=== PATIENT | female | born 1990 | race Asian ===

== ENCOUNTER 2021-06-18 16:06 | Outpatient (CLI) | payer OTHER ==
[2021-06-18 16:48] LABS: BASOPHILS % (AUTO) 0.2 %; EOSINOPHILS # (AUTO) 0.1 10^3/uL (0.0-0.7); EOSINOPHILS % (AUTO) 1.2 %; HCT - HEMATOCRIT 38.9 % (37.0-47.0); HGB - HEMOGLOBIN 12.7 g/dL (12.0-16.0); LYMPHOCYTES # (AUTO) 2.3 10^3/uL (1.5-3.5); LYMPHOCYTES % (AUTO) 21.8 %; MEAN CORPUSCULAR HEMOGLOBIN 28.3 pg (27.0-31.0); MEAN CORPUSCULAR HGB CONC 32.6 g/dL (32.0-36.0); MEAN CORPUSCULAR VOLUME 86.6 fL (81.0-99.0); MEAN PLATELET VOLUME 9.5 fL (7.9-10.8); MONOCYTES # (AUTO) 0.7 10^3/uL (0.0-1.0); MONOCYTES % (AUTO) 6.5 %; NEUTROPHILS # (AUTO) 7.3 10^3/uL (1.5-6.6); PLT - PLATELET COUNT 267 10^3/uL (130-450); RED BLOOD COUNT 4.49 10^6/uL (4.20-5.40); RED CELL DISTRIBUTION WIDTH 13.1 % (12.0-15.0); WHITE BLOOD COUNT 10.4 x10^3/uL (4.8-10.8)
[2021-06-18 17:36] LABS: BILIRUBIN,URINE NEGATIVE (NEGATIVE); GLUCOSE, URINE (UA) NEGATIVE (NEGATIVE); KETONES,URINE (UA) NEGATIVE (NEGATIVE); LEUKOCYTE ESTERASE, URINE NEGATIVE (NEGATIVE); NITRITE,URINE NEGATIVE (NEGATIVE); OCCULT BLOOD,URINE TRACE-INTA (NEGATIVE); PROTEIN,URINE NEGATIVE (NEGATIVE); UROBILINOGEN,URINE 0.2 (NORMAL) E.U./dL (NORMAL)
[2021-06-18 17:40] LABS: CLARITY,URINE HAZY (CLEAR)
[2021-06-18 17:57] LABS: BACTERIA,URINE Moderate /HPF (None Seen); RBC,URINE 0-5 /HPF (0-5); SQUAMOUS EPITHELIAL CELL,UR MOD Squamous (<= Few); WBC,URINE 0-3 /HPF (0-5)
[2021-06-18 20:29] LABS: ESTIMATED AVERAGE GLUCOSE 94 mg/dL (70-100); HEMOGLOBIN A1c% 4.9 % (4.27-6.07)
--- NOTE | 2021-06-19 08:52 | Ultrasound Report ---
PROCEDURE: OB First Trimester w/TV INDICATIONS: POSITIVE TEST OUTSIDE/PRIOR DATING DATA: Last menstrual period (LMP): April 08, 2021. LMP-based estimated date of delivery (BRITNEY): January 13, 2022. First dating scan (date ): June 18, 2021. Estimated date of delivery (BRITNEY) from first dating scan: January 31, 2022. The below data below was generated using the ultrasound BRITNEY of January 31, 2022 TECHNIQUE: Real-time scanning was performed of the fetus and maternal pelvic organs, with image documentation. Endovaginal scanning was also performed to better visualize the fetus and maternal ovaries. FINDINGS: 2 hypoechoic areas are seen adjacent to the gestational sac, measuring up to 1.6 cm, most consistent with subchorionic hemorrhages. Embryo: 1.3 cm, compatible with a 7 week, 4 day gestation Heart rate: 160 beats per minute Cervix: Closed. Measurement variability in dating: +/- 4 weeks by LMP, +/- 7 days by mean sac diameter (use before 6 weeks gestation if crown-rump length not able to be measured), +/- 5 days by crown-rump length (6-12 weeks gestation). Maternal organs: A thick-walled lesion is seen within the right ovary, most consistent with a corpus luteum cyst. IMPRESSION: 1. Single live intrauterine gestation. 2. Subchorionic hemorrhages as detailed above. Consider short-term sonographic follow-up as clinicall y warranted. Reviewed by: Balbir Alas MD on 06/19/2021 8:50 AM [facility] Approved by: Balbir Alas MD on 06/19/2021 8:50 AM [facility] Station ID: [id number]
[2021-06-20 13:26] LABS: HEPATITIS B SURFACE ANTIGEN NON-REACTIVE (NON-REACTIVE)
[2021-06-20 13:31] LABS: HEPATITIS C ANTIBODY NON-REACTIVE (NON-REACTIVE)
[2021-06-20 14:55] LABS: HIV AG/AB 4TH GEN NON-REACTIVE (NON-REACTIVE)
== END 2021-06-18 16:07 | disposition home or self-care (01) ==
LOC: EDBD 16:06 → DI 16:06
PROVIDERS: ATTEND Obstetrics & Gynecology
DX: Z32.01 Encounter for pregnancy test, result positive (principal); Z36.89 Encounter for other specified antenatal screening
CPT/HCPCS: 36415; 81001; 83036; 85025; 86592; 86762; 86787; 86803; 86850; 86900; 86901; 87086; 87340; 87389

== ENCOUNTER 2021-06-22 08:00 | Outpatient (CLI) | payer OTHER ==
[2021-06-23 22:44] LABS: CHLAMYDIA TRACHOMATIS DNA NEGATIVE (NEGATIVE); NEISSERIA GONORRHOEAE DNA NEGATIVE (NEGATIVE); TRICHOMONAS VAGINALIS DNA NEGATIVE (NEGATIVE)
== END 2021-06-22 23:59 ==
LOC: LAB.WC 08:00
PROVIDERS: ATTEND Obstetrics & Gynecology
DX: Z11.3 Encounter for screening for infections with a predominantly sexual mode of transmission (principal)
CPT/HCPCS: 87491; 87591; 87661

== ENCOUNTER 2021-07-26 11:24 | Emergency (ER) | payer OTHER ==
[2021-07-26 11:46] VITALS: BP 117/76
--- NOTE | 2021-07-26 12:25 | ED Physician Documentation ---
History of Present Illness - Stated complaint Stated Complaint: SHORTNESS BREATH, FAINTING, LIGHT HEADED - Chief complaint Chief Complaint: Heent - Additonal information Additional information: 30-year-old female G1, P0 presents emergency department for evaluation of about 1 week cough, congestion body ache headache and chills. She is incidentally 13 weeks . Being followed by OB here at [facility]. She has had an ultrasound confirming IUP. She has not had any recent fevers. She is very anxious and nervous about the possibility of being COVID-positive in the setting of her . She denies any nausea or vomiting. No lower pelvic pain vaginal bleeding or loss of fluids. Review of Systems Constitutional: reports: Chills, Myalgias, Fatigue. denies: Fever Eyes: reports: Reviewed and negative Ears: reports: Reviewed and negative Nose: reports: Reviewed and negative Throat: reports: Reviewed and negative Cardiac: denies: Chest pain / pressure, Palpitations, Pedal edema Respiratory: reports: Dyspnea. denies: Cough, Hemoptysis GI: reports: Reviewed and negative : reports: Reviewed and negative Skin: reports: Reviewed and negative Musculoskeletal: reports: Reviewed and negative PD PAST MEDICAL HISTORY - Allergies Allergies/Adverse Reactions: Allergies Allergy/AdvReac Type Severity Reaction Status Date / Time No Known Drug Allergies Allergy Verified 07/26/21 11:46 PD ED PE NORMAL - General General: Alert and oriented X 3, No acute distress - HEENT HEENT: PERRL - Cardiac Cardiac: RRR, No murmur, No gallop - Respiratory Respiratory: No respiratory distress, Clear bilaterally - Abdomen Abdomen: Normal bowel sounds, Soft, Non tender - Back Back: No CVA TTP - Derm Derm: Normal color, Warm and dry, No rash - Extremities Extremities: No deformity - Neuro Neuro: Alert and oriented X 3, slag mixer 2-12 intact Eye Opening: Spontaneous Motor: Obeys Commands Verbal: Oriented GCS Score: 15 - Psych Psych: Normal mood Results - Vitals Vitals: Vital Signs - 24 hr 07/26/21 11:42 Temperature 37.0 C Heart Rate 92 Respiratory 16 Rate Blood Pressure 117/76 O2 Saturation 98 Oxygen O2 Source Room air PD MEDICAL DECISION MAKING - ED course Complexity details: reviewed results, re-evaluated patient, considered differential, d/w patient ED course: This is a well-appearing 30-year-old female who presents emergency department for cough congestion myalgias headache that began about 1 week ago. She had close exposure to her coworker who is COVID-positive. Patient is exceedingly anxious about the possibility being COVID-positive in the setting of . She has no lower abdominal pain vaginal bleeding or loss of fluids has previously had an ultrasound confirming IUP. Unremarkable cardiopulmonary auscultation here in the emergency department with normal vitals. COVID screen is pending. Emergent return precautions were discussed. She is to continue follow-up with OB as already scheduled. Departure - Departure Disposition: 01 Home, Self Care Clinical Impression: Encounter for screening for COVID-19, and not yet delivered in second trimester Upper respiratory infection Qualifiers: URI type: unspecified viral URI Qualified Code(s): J06.9 - Acute upper respiratory infection, unspecified Condition: Stable Record reviewed to determine appropriate education?: Yes Comments: You are seen today in the emergency department for cough congestion headache body aches and shortness of air. You were exposed to a coworker who subsequently was positive for COVID-19. We do have a COVID test pending on you. You do need to maintain quarantine until the test results are known. Your heart and lung sounds are normal in the emergency department. Your vital signs are also normal. Your oxygen levels are normal. In general there is no specific treatment. We recommend that you stay well-h ydrated. Because you are you can take Tylenol for body aches. Continue to follow the recommendations by OB whether or not cough medication such as Robitussin or Tessalon/Sudafed are appropriate for you. At any point you develop difficulty breathing, have lower pelvic pain, vaginal bleeding or loss of fluids then you are to return immediately to the ER. Continue follow-up with OB as already scheduledYou have a Covid test pending. You need to self quarantine until the result is done and negative. Do not leave your house. Do not get near anybody. The results should be done in 48 to 72 hours. We will call with a positive result, the fastest way to get a negative result for confirmation though is to go to the hospital website at [email or web address], click on the my ZIPDIGS tab and sign up for the patient portal. If any friends or family get sick and would like to have a Covid test done, but do not have signs or symptoms that would necessitate being hospitalized, there are multiple local options for Covid testing. [facility] keeps an updated list of testing and vaccination options at [email or web address]
== END 2021-07-26 12:41 | disposition home or self-care (01) ==
LOC: ED 11:24
DX: O99.511 Diseases of the respiratory system complicating pregnancy, first trimester (principal); J06.9 Acute upper respiratory infection, unspecified; Z20.822 Contact with and (suspected) exposure to COVID-19
CPT/HCPCS: 99282; 99283

== ENCOUNTER 2021-08-12 13:17 | Outpatient (CLI) | payer OTHER | END 2021-08-12 13:18 | disposition home or self-care (01) | LOC: LAB.N 13:17 | PROVIDERS: ATTEND Obstetrics & Gynecology | DX: Z34.00 Encounter for supervision of normal first pregnancy, unspecified trimester (principal) | CPT/HCPCS: 36415; 82950 ==

== ENCOUNTER 2021-08-17 08:00 | Outpatient (CLI) | payer OTHER ==
[2021-08-17 18:11] LABS: BACTERIAL VAGINOSIS DNA NEGATIVE (NEGATIVE); CANDIDA GLABRATA DNA NEGATIVE (NEGATIVE); CANDIDA GROUP DNA NEGATIVE (NEGATIVE); CANDIDA KRUSEI DNA NEGATIVE (NEGATIVE); TRICHOMONAS VAGINALIS DNA NEGATIVE (NEGATIVE)
== END 2021-08-17 23:59 | disposition home or self-care (01) ==
LOC: LAB.WC 08:00
PROVIDERS: ATTEND Obstetrics & Gynecology
DX: N76.0 Acute vaginitis (principal)
CPT/HCPCS: 87661; 87801

== ENCOUNTER 2021-08-30 13:31 | Outpatient (CLI) | payer OTHER ==
--- NOTE | 2021-08-30 17:38 | Ultrasound Report ---
PROCEDURE: OB Detailed Eval INDICATIONS: SUPERVISION NORMAL FIRST OUTSIDE/PRIOR DATING DATA: Last menstrual period (LMP): 04/08/2021. LMP-based estimated date of delivery (BRITNEY): 01/13/2022. First dating scan (date and location): 06/18/2021. Estimated date of delivery (BRITNEY) from first dating scan: 01/31/2022. The below data below was generated using the ultrasound derived BRITNEY of 01/31/2022 TECHNIQUE: Real-time scanning was performed of the fetus, with image documentation and biometric measurements. COMPARISON: 06/18/2021. FINDINGS: General: A single living intrauterine gestation is present. Presentation: Variable Placenta: Placental position is anterior. There is a low-lying placenta with the inferior margin marquita roximately 1.5 cm from the internal cervical os. Amniotic fluid index: 14.3 cm, within normal limits for gestational age. Largest pocket measures 4. 6 m. heart rate: 145 beats per minute. Maternal cervical canal: 3.6 cm long; normal length is 2.5 cm or more. biometrics: Biparietal diameter: 4.5 cm, 19 weeks 5 days Head circumference: 16.2 cm, 19 weeks 0 days Abdominal circumference: 14.2 cm, 19 weeks 4 days Femur length: 2.6 cm, 18 weeks 0 days Estimated gestational age from initial scan: 18 weeks 0 days Composite gestational age from present scan: 19 weeks 2 days Estimated weight and percentile: 263 g corresponding to the 92nd percentile Measurement variability in biometric dating: +/- 10 days from 12-20 weeks gestation, +/- 2 weeks from 20-30 weeks gestation, +/- 3 weeks at 30 weeks gestation or later. Anatomic survey: Neuro: Ventricles are normal at less than 10 mm. Cisterna magna is normal at 3-11 mm. Cerebellum i s normal in size and morphology. Nuchal skin fold: Normal at less than 6 mm between 14 and 20 weeks gestational age. Face: Nose and lips, facial profile are not well-seen due to position. Spine: No evidence for spina bifida. Heart: 4-chambered heart is present, with normal ventricular outflow tracts. Diaphragm: Diaphragm is intact. Stomach: Left-sided stomach is present. Kidneys: No hydronephrosis. Normal is less than 5 mm in 2nd trimester, less than 7 mm in 3rd trimester. Cord: 3 vessel cord has orthotopic insertion. Bladder: Normal in size. Extremities: All 4 extremities are visualized. IMPRESSION: 1. Single living demonstrating interval growth at the upper limits of normal with estimated weight at the 92nd percentile. Recommend attention on follow-up. 2. Low-lying placenta. Recommend attention on follow-up. 3. facial structures not well seen due to position. Recommend a follow-up study in 2-4 we eks for further evaluation if clinically indicated. anatomic survey otherwise appears within no rmal limits. Reviewed by: Luis Miguel Mcgovern MD on 08/30/2021 5:36 PM PST Approved by: Luis Miguel Mcgovern MD on 08/30/2021 5:36 PM PST Station ID: [id number]
[2021-08-31 13:11] LABS: AFP MOM 1.15; AGE RISK DOWN SYNDROME 1 IN 530; CIGARETTE SMOKER? NOT GIVEN; DONOR AGE: EGG RETRIEVAL NOT GIVEN; DONOR EGG NO; EDD DETERMINED BY ULTRASOUND; ESTRIOL MOM 1.86; HX OF NEURAL TUBE DEFECTS NO; INHIBIN A MOM 1.26; INSULIN DEPEND DIABETIC NO; MATERNAL WEIGHT 116 lbs; MSS DOWN SYNDROME RISK <1 IN 5000; MSS3 TRISOMY 18 RISK <1 IN 5000; NUMBER OF FETUSES 1; PREV PREGNANCY DOWN SYND NO; RISK FOR ONTD <1 IN 5000
== END 2021-08-30 13:32 | disposition home or self-care (01) ==
LOC: DI 13:31
PROVIDERS: ATTEND Obstetrics & Gynecology
DX: O44.42 Low lying placenta NOS or without hemorrhage, second trimester (principal); Z3A.19 19 weeks gestation of pregnancy
CPT/HCPCS: 36415; 81220; 81511

== ENCOUNTER 2021-10-06 14:32 | Outpatient (CLI) | payer OTHER ==
--- NOTE | 2021-10-06 16:16 | Ultrasound Report ---
PROCEDURE: OB F/U or Repeat INDICATIONS: SUPERVISION OF OUTSIDE/PRIOR DATING DATA: Last menstrual period (LMP): April 08, 2021. LMP-based estimated date of delivery (BRITNEY): January 13, 2022. First dating scan (date ): June 18, 2021. Estimated date of delivery (BRITNEY) from first dating scan: January 31, 2022. TECHNIQUE: Real-time scanning was performed of the fetus, with image documentation and biometric measurements. COMPARISON: Prior studies dating back to June 18, 2021 FINDINGS: General: A single living intrauterine gestation is present. Presentation: Transverse Placenta: Placental position is anterior, without previa. Amniotic fluid index: 14.3 cm, appropriate for gestational age. heart rate: 157 beats per minute. Maternal cervical canal: 3.98 cm long; normal length is 2.5 cm or more. Estimated gestational age from initial scan: 23 weeks, 2 days. Other: Not applicable. IMPRESSION: Live single intrauterine gestation as detailed above. Reviewed by: Balbir Alas MD on 10/06/2021 4:15 PM PDT Approved by: Balbir Alas MD on 10/06/2021 4:15 PM PDT Station ID: [id number]
== END 2021-10-06 14:33 | disposition home or self-care (01) ==
LOC: DI 14:32
PROVIDERS: ATTEND Obstetrics & Gynecology
DX: Z34.02 Encounter for supervision of normal first pregnancy, second trimester (principal)

== ENCOUNTER 2021-11-03 13:20 | Outpatient (CLI) | payer OTHER ==
--- NOTE | 2021-11-03 16:15 | Ultrasound Report ---
PROCEDURE: OB F/U or Repeat INDICATIONS: HYDRONEPHROSIS OUTSIDE/PRIOR DATING DATA: Last menstrual period (LMP): April 08, 2021. LMP-based estimated date of delivery (BRITNEY): January 13, 2022. First dating scan (date ): June 18, 2021. Estimated date of delivery (BRITNEY) from first dating scan: January 31, 2022. TECHNIQUE: Real-time scanning was performed of the fetus, with image documentation and biometric measurements. COMPARISON: Prior studies dating back to August 30, 2021. FINDINGS: General: A single living intrauterine gestation is present. Presentation: Vertex Placenta: Placental position is anterior, without previa. Amniotic fluid index: 14.2 cm, appropriate for gestational age. heart rate: 141 beats per minute. Maternal cervical canal: Not well seen. anatomy: Kidneys: Right renal pelvis measures 5.8 mm. Left renal pelvis measures 5.9 mm. Normal is less than 5 mm in 2nd trimester, less than 7 mm in 3rd trimester. Stomach/abdomen: Normal appearance Chest/diaphragm: Normal appearance. Estimated gestational age from initial scan: 27 weeks, 2 days. Other: Not applicable. IMPRESSION: Left single intrauterine gestation as detailed above. Reviewed by: Balbir Alas MD on 11/03/2021 4:14 PM PDT Approved by: Balbir Alas MD on 11/03/2021 4:14 PM PDT Station ID: [id number]
== END 2021-11-03 13:21 | disposition home or self-care (01) ==
LOC: DI 13:20
PROVIDERS: ATTEND Obstetrics & Gynecology
DX: O35.8XX0 Maternal care for other (suspected) fetal abnormality and damage, not applicable or unspecified (principal)

== ENCOUNTER 2021-11-03 14:01 | Outpatient (CLI) | payer OTHER ==
[2021-11-03 15:11] LABS: HCT - HEMATOCRIT 34.6 % (37.0-47.0); HGB - HEMOGLOBIN 11.3 g/dL (12.0-16.0); MEAN CORPUSCULAR HEMOGLOBIN 28.9 pg (27.0-31.0); MEAN CORPUSCULAR HGB CONC 32.7 g/dL (32.0-36.0); MEAN CORPUSCULAR VOLUME 88.5 fL (81.0-99.0); MEAN PLATELET VOLUME 8.8 fL (7.9-10.8); RED BLOOD COUNT 3.91 10^6/uL (4.20-5.40); RED CELL DISTRIBUTION WIDTH 13.4 % (12.0-15.0); WHITE BLOOD COUNT 9.4 x10^3/uL (4.8-10.8)
== END 2021-11-03 14:02 | disposition home or self-care (01) ==
LOC: LAB 14:01
PROVIDERS: ATTEND Obstetrics & Gynecology
DX: Z34.00 Encounter for supervision of normal first pregnancy, unspecified trimester (principal)
CPT/HCPCS: 36415; 82950; 85027

== ENCOUNTER 2021-11-14 08:09 | Outpatient (CLI) | payer OTHER ==
[2021-11-14 08:35] LABS: GTT GLUCOSE,FASTING 80 mg/dL (70-100)
== END 2021-11-14 08:10 | disposition home or self-care (01) ==
LOC: LAB 08:09
PROVIDERS: ATTEND Obstetrics & Gynecology
DX: E74.39 Other disorders of intestinal carbohydrate absorption (principal)
CPT/HCPCS: 36415; 82951; 82952

== ENCOUNTER 2021-12-25 14:30 | Outpatient (CLI) | payer OTHER ==
[2021-12-25 14:52] LABS: CALCIUM 9.6 mg/dL (8.5-10.3); CREATININE 0.5 mg/dL (0.4-1.0); POTASSIUM 4.2 mmol/L (3.5-5.0)
== END 2021-12-25 14:31 | disposition home or self-care (01) ==
LOC: LAB 14:30
PROVIDERS: ATTEND Obstetrics & Gynecology
DX: E74.39 Other disorders of intestinal carbohydrate absorption (principal)
CPT/HCPCS: 36415; 80048

== ENCOUNTER 2021-12-28 11:48 | Outpatient (CLI) | payer OTHER ==
[2021-12-28 11:55] VITALS: BP 126/78
--- NOTE | 2021-12-28 13:17 | PROVIDER PROGRESS NOTE ---
- HPI Chief Complaint: Labor Current : Current EDU 01/31/22 Gestation 35 Weeks and 1 Days 1 Para 0 Vital Signs Temperature 98.1 F 12/28/21 11:54 Heart Rate 81 12/28/21 11:54 Respiratory Rate 17 12/28/21 11:54 Blood Pressure 126/78 12/28/21 11:54 O2 Saturation 99 12/28/21 11:54 Temperature 98.1 F 12/28/21 11:55 Heart Rate 81 12/28/21 11:54 Respiratory Rate 17 12/28/21 11:54 Blood Pressure 126/78 12/28/21 11:54 O2 Saturation 99 12/28/21 11:54 - Procedures OB Procedure Performed: NST Diagnosis/Indication for NST: labor NST Procedure: NST Procedure Start Date 12/28/21 Start Time 11:50 Stop Time 12:20 Vibroacoustic Stimulation Used No Patient States Movement Yes Service Date of procedure: 12/28/21 (Read: 12/28/2021) - Plan Plan: Patient is a 31-year-old G1, P0 at 35 weeks 1 day gestation presenting to triage for abdominal tightening. She says she is been having tightening of her belly, but is unsure if this is a contraction. She says this happened on the way to the hospital, but since she has been here, she has had no issues. No pain with the tightening. She has no dysuria. She has good movement, no leaking, no vaginal bleeding. She denies headache, right upper quadrant pain, changes in vision. Past medical history Chronic dermatitis Overactive bladder Past surgical history Denies Family history Father: Hypertension, diabetes Maternal grandmother: Hypertension, diabetes Social history Denies tobacco, alcohol, drugs, partner in active duty . Physical exam Constitutional: alert, no acute distress, well hydrated, well developed, well nourished, appropriate dress. Cardiovascular: RRR. Respiratory: no respiratory distress. Abdomen: nondistended, nontender, no guarding. Psych: affect and mood appropriate, normal interaction, good eye contact. FHT: 135 beats per baseline, moderate bili, accelerations present, no decelerations. [place]: Quiescent SVE: 0/0/-3 Assessment and plan 31-year-old G1, P0 at 35 weeks 1 day gestation presenting for abdominal cramping. 1. False labor -Cervix is not dilated. No contractions picked up on monitor. These are not painful and she does not appear in labor, patient was discharged with labor precautions. Discussed low threshold for returning if contractions worsen.
== END 2021-12-28 13:00 | disposition home or self-care (01) ==
LOC: WFO 11:48 → FBP 11:51 → WFO 13:00
PROVIDERS: ATTEND Obstetrics & Gynecology
DX: O47.03 False labor before 37 completed weeks of gestation, third trimester (principal); Z3A.35 35 weeks gestation of pregnancy
CPT/HCPCS: 59025; 99214

== ENCOUNTER 2022-01-01 06:25 | Inpatient (IN) | payer OTHER ==
[2022-01-01 06:58] LABS: RUPTURE OF MEMBRANES PLUS POSITIVE (NEGATIVE)
[2022-01-01] MEDS ORDERED: LACTATED RINGERS 1,000 ML ONE (07:33)
[2022-01-01] MEDS ORDERED: LIDOCAINE-MPF 1% 30 ML VIAL ID PRN (08:09)
[2022-01-01] MEDS ORDERED: hydrALAZINE INJ 20 MG/ML VIAL IVP PRN ×2 (08:09)
[2022-01-01] MEDS ORDERED: miSOPROStoL 200 MCG TABLET BC PRN (08:09)
[2022-01-01] MEDS ORDERED: TRANEXAMIC ACID IN NACL 1,000 MG/100 ML BAG IV PRN (08:09)
[2022-01-01] MEDS ORDERED: miSOPROStoL 200 MCG TABLET PR PRN (08:09)
[2022-01-01] MEDS ORDERED: fentaNYL 100 MCG/2 ML VIAL IVP PRN (08:09)
[2022-01-01] MEDS ORDERED: SODIUM CHLORIDE FLUSH 0.9% 10 ML SYRINGE IVP PRN (08:09)
[2022-01-01] MEDS ORDERED: NIFEdipine 10 MG CAPSULE PO PRN (08:09)
[2022-01-01] MEDS ORDERED: LABETALOL 20 MG/4 ML SYRINGE IVP PRN ×3 (08:09)
[2022-01-01] MEDS ORDERED: OXYTOCIN 10 UNIT/ML VIAL IM PRN (08:09)
[2022-01-01] MEDS ORDERED: METHYLERGONOVINE 0.2 MG/ML VIAL IM PRN (08:09)
[2022-01-01] MEDS ORDERED: CARBOPROST TROMETHAMINE 250 MCG/ML AMP IM PRN (08:09)
[2022-01-01] MEDS ORDERED: OXYTOCIN/SODIUM CHLORIDE 500 ML IV PRN (08:09)
[2022-01-01] MEDS ORDERED: AMPICILLIN 2 GM in SODIUM CHLORIDE 0.9% MINIBAG 100 ML IV SCH (08:30)
[2022-01-01] MEDS ORDERED: BETAMETHASONE 30 MG/5 ML VIAL IM SCH (09:00)
[2022-01-01] MEDS ORDERED: OXYTOCIN/SODIUM CHLORIDE 500 ML IV SCH (09:00)
[2022-01-01] MEDS ORDERED: SODIUM CHLORIDE FLUSH 0.9% 10 ML SYRINGE IVP SCH (09:00)
[2022-01-01] MEDS: LACTATED RINGERS 1,000 ML IV SCH ×2 (09:39→17:00)
[2022-01-01 09:46] LABS: BASOPHILS % (AUTO) 0.2 %; EOSINOPHILS # (AUTO) 0.1 10^3/uL (0.0-0.7); EOSINOPHILS % (AUTO) 0.5 %; HCT - HEMATOCRIT 36.5 % (37.0-47.0); LYMPHOCYTES # (AUTO) 1.6 10^3/uL (1.5-3.5); LYMPHOCYTES % (AUTO) 16.1 %; MEAN CORPUSCULAR HEMOGLOBIN 28.7 pg (27.0-31.0); MEAN CORPUSCULAR HGB CONC 32.9 g/dL (32.0-36.0); MEAN CORPUSCULAR VOLUME 87.3 fL (81.0-99.0); MEAN PLATELET VOLUME 10.7 fL (7.9-10.8); MONOCYTES # (AUTO) 0.6 10^3/uL (0.0-1.0); MONOCYTES % (AUTO) 6.1 %; NEUTROPHILS # (AUTO) 7.3 10^3/uL (1.5-6.6); NEUTROPHILS % (AUTO) 76.1 %; PLT - PLATELET COUNT 217 10^3/uL (130-450); RED BLOOD COUNT 4.18 10^6/uL (4.20-5.40); RED CELL DISTRIBUTION WIDTH 13.2 % (12.0-15.0); WHITE BLOOD COUNT 9.7 x10^3/uL (4.8-10.8)
[2022-01-01 09:57] LABS: ALBUMIN 3.6 g/dL (3.2-5.5); ALBUMIN/GLOBULIN RATIO 0.9 (1.0-2.2); BILIRUBIN,TOTAL 0.4 mg/dL (0.2-1.0); CALCIUM 9.6 mg/dL (8.5-10.3); CREATININE 0.7 mg/dL (0.4-1.0); POTASSIUM 3.9 mmol/L (3.5-5.0); TOTAL PROTEIN 7.4 g/dL (6.7-8.2)
--- NOTE | 2022-01-01 10:05 | PROCEDURE REPORT ---
- HPI Diagnosis/Indication for NST: labor Vital Signs Temperature 98.6 F 01/01/22 06:31 Heart Rate 81 01/01/22 06:31 Respiratory Rate 20 01/01/22 06:31 Blood Pressure 138/90 H 01/01/22 06:31 Temperature 98.6 F 01/01/22 06:31 Heart Rate 81 01/01/22 06:31 Respiratory Rate 20 01/01/22 06:31 Blood Pressure 138/90 H 01/01/22 06:31 O2 Saturation - NST Procedure NST Procedure Start Time 11:50 Stop Time 12:20 EFM: 150s, moderate variability, positive accelerations, no decelerations [place]: 2-4min NST reactive - Results and Plan Plan: 31to at 35.5w with reactive NST, PPROM - Discussed with pediatrics, may admit patient for delivery - Admit
--- NOTE | 2022-01-01 10:06 | HISTORY & PHYSICAL EXAMINATION ---
Admit History - Visit Reason Visit Reason: Membranes rupture (01/01 0400) - : 1 Parity: 0 Care: positive: [facility] Risk/History: positive: labor <37 weeks, induced HTN, Labor augmentation, Premature rupture membrane Complications This : positive: Treated for GBS/UTI (Treat pending GBS results due to at 35w), induced HTN (PCR pending to evaluate for preeclampsia) Smoking Status: Never smoker - Mother's Labs Mother's Blood Type: positive: B Mother's RH: positive: Positive GBS: positive: Other (Unknown at 35w, GBS pending) Rubella Status: positive: Immune (11/03 US at 27.2w shows pelviectasis resolving. R renal pelvis 5.8mm, L renal pelvis 5.9mm) - Other Maternal History Other Maternal History: Med: chronic dermatitis, overactive bladder Surg: denies Social: Lives in [place] with and he is active duty, she works at [employer] at [place] Fam: noncontributory Meds/Allgy - Allergies Allergies/Adverse Reactions: Allergies Allergy/AdvReac Type Severity Reaction Status Date / Time No Known Drug Allergies Allergy Verified 07/26/21 11:46 Review of Systems - All Other Systems All Other Systems: reports: Reviewed and negative Physical - Abdominal Exam Vital Signs: Temp Pulse Resp BP Pulse Ox 98.6 F 81 20 138/90 H 01/01/22 06:31 01/01/22 06:31 01/01/22 06:31 01/01/22 06:31 Contraction Frequency (min/apart): 2-4m Contraction Intensity: positive: Mild to moderate Uterine Resting Tone: positive: Soft - Monitoring Heart Rate Baseline: 150s Strip Review: positive: Category I - Presentation Presentation: positive: Vertex - Vaginal Exam Membranes: positive: Membranes ruptured (ROMPLUS positive, gross clear fluid noted) Dilation (in cm): 2 Effacement (%): 80 Station: positive: -3 Cervical Position: positive: Midposition (Cephalic, EFW 3000g, Placenta anterior) - Speculum Exam Speculum Exam Performed: positive: No Findings: positive: Gross leak, Other (ROMPLUS POS) Plan for Labor - Plan For Labor Plan for Labor: 31yo at 35.5w by 7w US admitted for PPROM - Admit for PPROM. Discussed with Pediatrics and delivery approved here at . OB and Pediatrics reviewed risks of delivery and risk of transfer, patient and partner expressed understanding. - GBS pending. Start ampicillin now. - Gestational hypertension vs preeclampsia. PCR pending. Monitor BP, no antihypertensive at this time. - Celestone for lung maturity - Currently jocelin and uncomfortable. Plans for epidural. Will augment labor as needed.
[2022-01-01] MEDS: AMPICILLIN 2 GM in SODIUM CHLORIDE 0.9% MINIBAG 100 ML IV SCH ×2 (10:17→17:02)
[2022-01-01] MEDS ORDERED: miSOPROStoL 100 MCG TABLET BC ONE (11:00)
[2022-01-01 13:13] LABS: CREATININE,URINE 96.1 mg/dL
[2022-01-01] MEDS ORDERED: ONDANSETRON 4 MG/2 ML VIAL IVP PRN (13:21)
--- NOTE | 2022-01-01 14:28 | PROVIDER PROGRESS NOTE ---
Labor Progress Note - Uterine Monitoring Contraction Frequency (min/apart): 2-4 Contraction Intensity: positive: Moderate Uterine Resting Tone: positive: Soft - Monitoring Monitor Mode: positive: External ultrasound Heart Rate Baseline: 130 Heart Rate Variability: positive: Moderate (6-25 bmp) Accelerations: positive: Present, 15x15 Decelerations: positive: None Strip Review: positive: Category I - Vaginal Exam Dilation (in cm): 4 Effacement (%): 100 Station: -2 Cervical Position: Midposition - Labor Progress Note Labor Progress Note/Additional Text: 31yo at 35.5w by 7w US admitted for PPROM - GBS pending, continue ampicillin - Preeclampsia. No severe range BP, PCR 1.0. Monitor BP, no antihypertensive at this time. - Celestone 01/01 1000 - Requesting epidural now - Pitocin 1630
[2022-01-01] MEDS ORDERED: ROPIVACAINE 0.2% 200 MG/100 ML BAG EP ONE (15:00)
--- NOTE | 2022-01-01 15:27 | ANESTHESIA ---
Pre-Anesthesia VS, & Labs - Diagnosis active labor - Procedure vaginal delivery Vital Signs: Temp Pulse Resp BP Pulse Ox 36.7 C 86 18 137/85 H 01/01/22 08:45 01/01/22 08:45 01/01/22 08:45 01/01/22 08:45 Height: 5 ft 2 in Weight (kg): 63.957 kg Body Mass Index: 25.7 BMI Classification: Overweight - NPO Other (clear liquids) - Is Patient ?: Yes - Lab Results Current Lab Results: Laboratory Tests 01/01/22 09:30: Sodium 136, Potassium 3.9, Chloride 104, Carbon Dioxide 21, A nion Gap 11.0, BUN 13, Creatinine 0.7, Estimated GFR (MDRD) 97, Glucose 75, Calcium 9.6, Total Bilirubin 0.4, AST 28, ALT 19, Alkaline Phosphatase 213 H, Total Protein 7.4, Albumin 3.6, Globulin 3.8, Albumin/Globulin Ratio 0.9 L 01/01/22 09:30: WBC 9.7, RBC 4.18 L, Hgb 12.0, Hct 36.5 L, MCV 87.3, MCH 28.7, MCHC 32.9, RDW 13.2, Plt Count 217, MPV 10.7, Neut # (Auto) 7.3 H, Lymph # (Auto) 1.6, [place] # (Auto) 0.6, Eos # (Auto) 0.1, Baso # (Auto) 0.0, Absolute Nucleated RBC 0.00, Nucleated RBC % 0.0 01/01/22 09:30: Blood Type B POSITIVE, Antibody Screen NEGATIVE Fish Bones: 01/01/22 09:30 01/01/22 09:30 Home Medications and Allergies Active Medications Betamethasone (Betamethasone 30 Mg/5 Ml Vial) 12 mg IM Q24H DOUG Stop: 01/02/22 09:01 Last Admin: 01/01/22 10:18 Dose: 12 mg Carboprost Tromethamine (Carboprost Tromethamine 250 Mcg/Ml Amp) 250 mcg IM .O NCE PRN PRN Reason: Hemorrhage Fentanyl (Fentanyl 100 Mcg/2 Ml Vial) 50 mcg IVP Q1H PRN PRN Reason: Severe Pain (score 7-10) Last Admin: 01/01/22 13:05 Dose: 50 mcg Hydralazine HCl (Hydralazine Inj 20 Mg/Ml Vial) 5 - 10 mg IVP Q20M PRN; Protocol PRN Reason: SBP> or= 160 OR DBP> or= 110 Hydralazine HCl (Hydralazine Inj 20 Mg/Ml Vial) 10 mg IVP .ONCE PRN; Protocol PRN Reason: SBP> or= 160 OR DBP> or= 110 Oxytocin/Sodium Chloride (Pitocin/Sodium Chloride) 500 mls @ 999 mls/hr IV PRN PRN; Protocol PRN Reason: POST- HEMORR PREVENTION Tranexamic Acid (Tranexamic 1,000 Mg/100ml-Nacl) 1,000 mg in 100 mls @ 600 mls/hr IV Q30M PRN PRN Reason: EBL >1200mL and within 3hr Lactated Ringer's (Lr) 1,000 mls @ 125 mls/hr IV .Q8H [facility] Last Admin: 01/01/22 09:39 Dose: 125 mls/hr Oxytocin/Sodium Chloride (Pitocin/Sodium Chloride) 500 mls @ 2 mls/hr IV TITR DOUG; Protocol Ampicillin Sodium 2 gm/ Sodium (Chloride) 100 mls @ 100 mls/hr IV Q6H [facility] Last Infusion: 01/01/22 11:17 Dose: Infused Labetalol HCl (Labetalol 20 Mg/4 Ml Syringe) 20 - 80 mg IVP Q10M PRN; Protocol PRN Reason: SBP> or= 160 OR DBP> or= 110 Labetalol HCl (Labetalol 20 Mg/4 Ml Syringe) 20 mg IVP .ONCE PRN; Protocol PRN Reason: SBP> or= 160 OR DBP> or= 110 Labetalol HCl (Labetalol 20 Mg/4 Ml Syringe) 20 - 40 mg IVP Q10M PRN; Protocol PRN Reason: SBP> or= 160 OR DBP> or= 110 Lidocaine HCl (Lidocaine-Mpf 1% 30 Ml Vial) 30 ml ID ONCE PRN PRN Reason: PERINEAL REPAIR Stop: 01/02/22 08:10 Methylergonovine Maleate (Methylergonovine 0.2 Mg/Ml Vial) 0.2 mg IM .ONCE PRN PRN Reason: Hemorrhage Misoprostol (Misoprostol 200 Mcg Tablet) 600 mcg BC .ONCE PRN PRN Reason: Hemorrhage Misoprostol (Misoprostol 200 Mcg Tablet) 800 mcg NC .ONCE PRN PRN Reason: Hemorrhage Nifedipine (Nifedipine 10 Mg Capsule) 10 - 20 mg PO Q20M PRN; Protocol PRN Reason: SBP> or= 160 OR DBP> or= 110 Ondansetron HCl (Ondansetron 4 Mg/2 Ml Vial) 4 mg IVP Q6HR PRN PRN Reason: Nausea / Vomiting Last Admin: 01/01/22 13:36 Dose: 4 mg Oxytocin (Oxytocin 10 Unit/Ml Vial) 10 unit IM .ONCE PRN PRN Reason: Step One if no IV access. Sodium Chloride (Sodium Chloride Flush 0.9% 10 Ml Syringe) 10 ml IVP PRN PRN PRN Reason: NEEDED PER PROVIDER ORDERS Sodium Chloride (Sodium Chloride Flush 0.9% 10 Ml Syringe) 10 ml IVP Q8H DOUG PNV, Fe, vit c, tylenol Allergies/Adverse Reactions: Allergies Allergy/AdvReac Type Severity Reaction Status Date / Time No Known Drug Allergies Allergy Verified 07/26/21 11:46 Anes History & Medical History - Anesthetic History Family history of Anesthesia Complications: Denies Family history of Malignant Hyperthermia: Denies - Medical History Cardiovascular: reports: None Pulmonary: reports: None Gastrointestinal: reports: None Urinary: reports: None Neuro: reports: Headaches (recent) Musculoskeletal: reports: None Endocrine/Autoimmune: reports: None Blood Disorders: reports: None Skin: reports: None Smoking Status: Never smoker Psychosocial: reports: No issues indicated History of Cancer?: No - Obstetrical History : 1 Parity: 0 Events: reports: labor <37 weeks, induced HTN, Labor augmentation, Premature rupture membrane Complications: reports: Treated for GBS/UTI (Treat pending GBS results due to at 35w), induced HTN (PCR pending to evaluate for pre eclampsia) Exam General: Alert, Oriented x3, Cooperative, No acute distress Dental: WNL Mouth Openin Fingerbreadth Neck Mobility: Normal Mallampati classification: III Thyromental Distance: 4-6 cm Mental/Cognitive Status: Alert/Oriented X3, Normal for patient Plan Anesthesia Type: Epidural Consent for Procedure(s) Verified and Reviewed: Yes Code Status: Attempt Resuscitation ASA classification: 2-Mild systemic disease Is this case an emergency?: No
[2022-01-01] MEDS ORDERED: NALOXONE 0.4 MG/ML VIAL IVP PRN (15:29)
[2022-01-01] MEDS ORDERED: ROPIVACAINE 0.2% 200 MG/100 ML BAG EP PRN (15:29)
[2022-01-01] MEDS ORDERED: SODIUM CHLORIDE 0.9% 10 ML VIAL IVP ONE (15:30)
[2022-01-01] MEDS ORDERED: fentaNYL 100 MCG/2 ML VIAL ONE (15:30)
[2022-01-01] MEDS ORDERED: WITCH HAZEL/GLYCERIN 1 PAD TOP PRN (20:41)
[2022-01-01] MEDS ORDERED: HYDROCORTISONE 1% CREAM 28 GM TUBE PR PRN (20:41)
[2022-01-01] MEDS ORDERED: VARICELLA VACCINE LIVE/PF 1,350 UNIT/0.5 ML VIAL SUBQ ONE (20:41)
--- NOTE | 2022-01-01 20:58 | DELIVERY NOTE ---
Delivery Note - Labor Labor: positive: Augmented by oxytocin - Delivery Method Delivery Method: positive: Spontaneous vaginal delivery - Cervical Ripening Method Cervical Ripening Method: positive: Misoprostil - Presentation Presentation: positive: Vertex, IZABELA - left occiput anterior - Nuchal Cord Nuchal Cord: positive: None - Anesthetic Anesthetic Type: - Amniotic Fluid Description Amniotic Fluid Description: positive: Clear - Laceration Laceration: positive: 2nd degree, Vaginal - Suture Suture Type: positive: Vicryl Suture Size: positive: 3-0 - Delivery Outcome Delivery Outcome: positive: Livebirth - : positive: Placed in direct skin contact with mother, Stimulated, Warmed, [place] used sex: positive: Male - Cord Cord: positive: 3 vessels - Placenta Placenta: positive: Intact, Spontaneous - Estimated Blood Loss Estimated Blood Loss (in cc): 1,000 - Post Delivery Events Post Delivery Events: positive: Hemorrhage - Delivery Comments (Free Text/Narrative) Delivery Comments (Free Text/Narrative): Called to examine patient due to early decelerations. 10/100/+1. Pushing began with good efforts, pushing ~1h. Pediatrics present at delivery for prematurity 35.5w. Head delivered IZABELA. Shoulders and body delivered with ease. Baby placed on mother's abdomen. Delayed cord clamping. Placenta delivered spontaneously and intact, 3vc. Fundus firm. Vagina and perineum inspected- second degree laceration repaired in usual fashion with 3-0 Vicryl. Bleeding noted. Bimanual massage performed. Pitocin infusing. TXA 1g. Cytotec 800mcg. Methergine given. Decrease in bleeding noted. Hemostasis. Family bonding at bedside.
[2022-01-01] MEDS: ACETAMINOPHEN 325 MG TABLET PO PRN (21:30)
[2022-01-01] MEDS: IBUPROFEN 800 MG TABLET PO SCH (21:31)
[2022-01-02] MEDS: ACETAMINOPHEN 325 MG TABLET PO PRN ×4 (01:37→21:43)
[2022-01-02] MEDS: DOCUSATE SODIUM 100 MG CAPSULE PO SCH ×3 (01:51→20:58)
[2022-01-02] MEDS: IBUPROFEN 800 MG TABLET PO SCH ×3 (03:41→20:58)
[2022-01-02] MEDS ORDERED: CETIRIZINE 10 MG TABLET PO SCH (11:00)
--- NOTE | 2022-01-02 11:29 | PROVIDER PROGRESS NOTE ---
Subjective - Prog Note Date Prog Note Date: 01/02/22 - Subjective Pt reports feeling: Improved Subjective: Comfortable. Reports pelvic soreness. Appropriate lochia. Ambulating. Voiding. Tolerating regular diet. , has started formula supplementing. Mood is good. Denies headache, visual changes. Objective - Vital Signs/Intake & Output Reviewed Vital Signs: Yes Vital Signs: Vital Signs x48h Temp Pulse Resp BP Pulse Ox 01/02/22 07:40 98.1 F 91 18 132/64 H 99 01/02/22 03:40 98.1 F 92 16 129/82 H 100 Intake & Output: Intake & Output 12/30/21 12/31/21 01/01/22 01/02/22 23:59 23:59 23:59 23:59 Intake Total 0509.046 0562 Output Total 300 550 Balance 3819.424 0242 - Objective General Appearance: positive: No acute distress Respiratory: positive: No respiratory distress Cardiovascular: positive: Other (Regular rate) Abdomen: positive: Other (Appropriate tenderness, fundus firm) Extremities: positive: Non-tender Neurologic/Psychiatric: positive: Oriented x3 - Lab Results Fish Bones: 01/01/22 09:30 01/01/22 09:30 Other Labs: Lab Results x24hrs 01/01/22 Range/Units 12:40 Urine Creatinine 96.1 mg/dL Ur Total Protein Timed 94 mg/dL Protein/Creatinin Ratio 1.0 H (<=0.2) Assessment/Plan - Problem List (1) care following vaginal delivery Impression: 31yo s/p 6/20 following augmentation for PPROM at 35.5w, PPD#1 -Routine care - Anticipate discharge tomorrow (2) Preeclampsia Impression: Hypertension, not severe range. No antihypertensives indicated since diagnosis. Qualifiers: Trimester: third trimester Qualified Code(s): O14.93 - Unspecified pre- eclampsia, third trimester (3) hemorrhage Impression: Immediate PPH. Bleeding appropriate. Advised patient to continue vitamins/oral iron. Qualifiers: hemorrhage type: other immediate Qualified Code(s): O72.1 - Other immediate hemorrhage (4) Single live Impression: 35w , doing well and rooming with mother. GBS pending.
[2022-01-03] MEDS: ACETAMINOPHEN 325 MG TABLET PO PRN ×2 (02:02→05:43)
[2022-01-03] MEDS: IBUPROFEN 800 MG TABLET PO SCH ×2 (02:45→08:57)
--- NOTE | 2022-01-03 08:08 | Discharge Plan ---
Discharge Plan Problem Reviewed?: Yes Disposition: Home, Self Care Condition: Good Diet: Regular Activity Restrictions: No Restrictions Shower Restrictions: No Driving Restrictions: No (May drive when comfortable) Weight Bearing: Full Weight Instruction Topics: Vaginal After, Preeclampsia No Smoking: If you smoke, Please STOP! Call for help. Follow-up with: Enrike Carlson MD [Provider Admit Priv/Credential] -
--- NOTE | 2022-01-03 08:11 | DISCHARGE SUMMARY ---
"Discharge Summary Admit Date: 01/01/22 Discharge Date: 01/03/22 Discharging Provider: Gloria Grace DO Code Status: Attempt Resuscitation Condition at Discharge: Good Discharge Disposition: 01 Home, Self Care Discharge Facility Name: [facility] - DIAGNOSES Admission Diagnoses: PPROM Preeclampsia Discharge Diagnoses with Status of Each Condition: PPROM- Preeclampsia-Resolving - HPI History of Present Illness: 31yo presented on 01/01 at 35.5w and admitted for confirmed PPROM. care at . Also diagnosed with preeclampsia on admission. - CONSULTS | PROCEDURES Consultations: Anesthesia Procedures: - HOSPITAL COURSE Hospital Course: 31yo presented on 01/01 at 35.5w and admitted for confirmed PPROM. care at . Also diagnosed with preeclampsia on admission. Hypertensive with non severe range BP, PCR 1.0. She was 2cm on admission. Cervix ripened with misoprostol and then Pitocin started. She received an epidural. Progressed to 10cm and uncomplicated . Second degree laceration repaired. She did have an immediate hemorrhage treated with massage and uterotonics. Bp decreased and she is asymptomatic. Recovering appropriately and meets criteria for discharge. She will have BP check this week and follow up in . and preeclampsia precautions. - ALLERGIES Allergies/Adverse Reactions: Allergies Allergy/AdvReac Type Severity Reaction Status Date / Time No Known Drug Allergies Allergy Verified 07/26/21 11:46 - PHYSICAL EXAM AT DISCHARGE General Appearance: positive: No acute distress Respiratory: positive: No respiratory distress Cardiovascular: positive: Regular rate & rhythm Abdomen: positive: Non-tender (FF) Skin: positive: Color nml Extremities: positive: Non-tender Neurologic/Psychiatric: positive: Oriented x3 - LABS Result Diagrams: 01/01/22 09:30 01/01/22 09:30 - QUALITY (Female Hip Fx Only) Was patient sent home on osteoporosis medication?: No - FOLLOW UP Follow Up: BP check this week 2w appt - TIME SPENT Time Spent in Discharge (Minutes): 25"
[2022-01-03] MEDS: DOCUSATE SODIUM 100 MG CAPSULE PO SCH (08:57)
[2022-01-03 09:01] VITALS: BP 126/70
[2022-01-03] MEDS ORDERED: VARICELLA VACCINE LIVE/PF 1,350 UNIT/0.5 ML VIAL SUBQ ONE (11:00)
--- NOTE | 2022-01-03 11:49 | Labor Flowsheet ---
Labor Flowsheet Datetime Report Generated by CPN: 01/03/2022 11:49 Datetime: 01/03/2022 08:57 VITAL SIGNS NBP Sys/Mariann/Mean (mmHg): 126 : 70 : 83 Pulse: 77 Datetime: 01/02/2022 20:14 SpO2 (%): 100 Datetime: 01/01/2022 22:50 Epidural Procedure Other: Cath Removed; Cath Intact Datetime: 01/01/2022 22:45 Respirations: 18 Temperature (C): 37.9 MATERNAL ASSESSMENT Level of Consciousness: Alert DTR's/Clonus: DTRs 2+; No Clonus Headache: Denies Breath Sounds, Left: Clear and Equal Breath Sounds, Right: Clear and Equal Nausea/Vomiting: Denies RUQ Epigastric Pain: Denies Datetime: 01/01/2022 21:44 Pain Location: Abdomen Datetime: 01/01/2022 20:30 Anesthesia Level Check: T10- Umbilicus Datetime: 01/01/2022 20:27 Medication Comments: methergine 0.2mg IM RAT Datetime: 01/01/2022 20:18 Cervical Ripening Agents: Cytotec @ 800mcg RI I/O Interventions: Straight Cath (ml) @ 50 Datetime: 01/01/2022 20:14 Pain Assessment Comments: Datetime: 01/01/2022 20:08 Stage of : Recovery Datetime: 01/01/2022 20:01 LaborFlag: Labor Datetime: 01/01/2022 20:00 UTERINE ACTIVITY Monitor Mode: External Monitor Interventions for UA: [place] Adjusted Frequency (min): 1.5-2 Quality: Strong Duration (sec): 60-100 Pattern: Normal: <= 5 Contractions in 10 Minutes Resting Tone (Palpate): Relaxed Pitocin Checklist: At Least 1 Acceleration of 15 bpm x 15 Seconds in 30 Minutes or Adequate Variabi lity; No More than 1 Late Deceleration Occurred in Past 30 Minutes; No More than 2 Variable Decelerat ions > 60 Seconds in Duration and decreasing >60 bpm in 30 minutes; No More than 5 Uterine Contractio ns in 10 Minutes for any 20 Minute Interval; Uterus Palpates Soft between Contractions ASSESSMENT A Monitor Mode: External US FHR Baseline Rate : 160 Variability: Moderate 6-25 bpm Accelerations: 10X10 Decelerations: Late; Variable (Annotations: intermittent late x 2, mild variables to 120s) Actions for Decelerations: cephalus Category: Category II MEDICATIONS Pitocin (milliunits): Discontinued Datetime: 01/01/2022 19:45 FHR Baseline Changes: No Baseline Change Comments: Pushing now with descent of cephalus Datetime: 01/01/2022 19:24 Temperature Route: Axillary PAIN Pain Scale: 0 Pain Presence: None/Denies Pain Type: N/A Pain Goal: 5 Pain Relief Measures: Epidural Given Pain Coping: Pushing during contractions Datetime: 01/01/2022 19:17 Communication Comments: Dr. Fadi called to attend delivery Datetime: 01/01/2022 19:14 STAGE 2 Pushing: Coached on Pushing Pushing Position: Pushing with Contractions; Pushing Lithotomy Datetime: 01/01/2022 19:10 Provider Notified (Name): Dr Cayabyab here with patient. Pushing instructions reviewed with mom and dad. Datetime: 01/01/2022 19:00 COMMUNICATION Communication: RN Reviewed Strip; Report Given to @ (Annotations: RN to RN report between RN Rohit Rotundo and RN Spear) Notification Reason: Status Update; Status; Labor Status; Pain Datetime: 01/01/2022 18:43 PATIENT CARE Patient Position/Activity: High Fowlers Datetime: 01/01/2022 18:42 VAGINAL EXAM Dilatation (cm): 10.0 Effacement (%): 100 Station: 1 Exam by: DrLauro Grace Datetime: 01/01/2022 16:58 Antibiotics: Ampicillin IV 2 Gm Datetime: 01/01/2022 16:30 Contraction Comments: couplet/triplet contractions Datetime: 01/01/2022 15:06 Epidural Procedure: Test Dose Datetime: 01/01/2022 14:57 Anesthesia Comments: local given Datetime: 01/01/2022 14:51 ANESTHESIA Epidural Positioning: Sitting Datetime: 01/01/2022 14:09 Strip Reviewed by: Dr. Cayabyab Datetime: 01/01/2022 13:39 Antiemetics/Antacids: Zofran (mg) @ 4 Datetime: 01/01/2022 13:05 Analgesics/Sedatives: Fentanyl (mcg) @ 50
== END 2022-01-03 11:48 | disposition home or self-care (01) | DRG 806 ==
LOC: WFO 06:25 → FBP 06:28 → WFO 08:08 → FBP 08:09
PROVIDERS: ADMIT Obstetrics & Gynecology; ATTEND Obstetrics & Gynecology
PROC: 10E0XZZ Delivery of Products of Conception, External Approach (ICD-10-PCS; principal; 2022-01-01)
PROC: 0KQM0ZZ Repair Perineum Muscle, Open Approach (ICD-10-PCS; 2022-01-01)
DX: O60.14X0 Preterm labor third trimester with preterm delivery third trimester, not applicable or unspecified (principal); O72.1 Other immediate postpartum hemorrhage; Z37.0 Single live birth; Z3A.35 35 weeks gestation of pregnancy; O42.013 Preterm premature rupture of membranes, onset of labor within 24 hours of rupture, third trimester; O14.94 Unspecified pre-eclampsia, complicating childbirth; O70.1 Second degree perineal laceration during delivery
CPT/HCPCS: 80053; 82570; 84112; 84156; 85025; 86850; 86900; 86901; 87797; 99215; A9270; J2210; J7120